=== PATIENT | female | born 1995 | race Caucasian/White ===

== ENCOUNTER 2021-10-20 09:47 | Inpatient (IN) ==
[2021-10-20] MEDS ORDERED: Lidocaine 1% 20 ML MDV INFILT PRN (10:21)
[2021-10-20] MEDS ORDERED: Famotidine 20 MG/2 ML VIAL IVP PRN (10:21)
[2021-10-20] MEDS ORDERED: Naloxone 0.4 MG/ML INJ IVP PRN (10:21)
[2021-10-20] MEDS ORDERED: Metoclopramide 10 MG/2 ML VIAL IVP PRN (10:21)
[2021-10-20] MEDS ORDERED: Penicillin G Potassium 5,000,000 UNIT in 0.9 % Sodium Chloride Mini Bag 100 ML IVPB ONE (10:21)
[2021-10-20] MEDS ORDERED: Ondansetron 4 MG/2 ML VIAL IVP PRN (10:21)
[2021-10-20] MEDS ORDERED: *HR* Nalbuphine 10 MG/ML AMPUL IV PRN (10:21)
[2021-10-20] MEDS ORDERED: Azithromycin 500 MG in 0.9 % Sodium Chloride 250 ML IVPB PRN (10:21)
[2021-10-20] MEDS ORDERED: Penicillin G Potassium 2,500,000 UNIT/105 ML MLS IVPB SCH (10:30)
[2021-10-20] MEDS ORDERED: Oxytocin 20 units/ LR 1000 mL 20 UNIT/1,000 ML BAG IVC SCH ×2 (11:00→21:29)
[2021-10-20] MEDS: Ringers Solution, Lactated 1,000 ML IVC SCH ×2 (11:06→13:25)
[2021-10-20] MEDS ORDERED: EPHEDrine 50 MG/ML VIAL IVP PRN (12:14)
[2021-10-20] MEDS ORDERED: *HR* FentaNYL (PF) 100 MCG/2 ML VIAL EP ONE (12:14)
[2021-10-20] MEDS ORDERED: Ropivacaine/PF 0.2% 20 ML VIAL EP ONE (12:14)
[2021-10-20] MEDS ORDERED: Epidural Premix (fent/bupiv) 110 ML EP SCH (12:15)
[2021-10-20] MEDS ORDERED: Epidural Premix (fent/bupiv) 110 ML EP ONE (12:17)
[2021-10-20 12:20] LABS: Basophils % 0.5 %; Eosinophils # 0.1 K/mcL (0.0-0.6); Eosinophils % 2.1 %; Hematocrit 42.6 % (35.3-44.9); Hemoglobin 14.3 g/dL (11.5-15.4); Immature Granulocytes % 0.8 % (0-4); Lymphocytes # 1.3 K/mcL (0.6-4.6); Lymphocytes % 21.7 %; Mean Corpuscular HGB Conc 33.6 g/dL (31.6-35.5); Mean Corpuscular Hemoglobin 31.7 pg (28.0-33.3); Mean Corpuscular Volume 94.5 fL (83.0-100.0); Mean Platelet Volume 12.2 fL (9.4-12.4); Monocytes # 0.5 K/mcL (0.0-1.3); Monocytes % 7.5 %; Neutrophils # 4.2 K/mcL (1.6-8.9); Platelet Count 191 K/mcL (140-400); Red Blood Count 4.51 M/mcL (3.82-4.97); Segmented Neutrophils % 67.4 %; White Blood Count 6.2 K/mcL (4.3-11.1)
[2021-10-20 13:23] LABS: Amphetamine Screen,Urine Negative ng/mL (Cutoff=1000); Barbiturate Screen,Urine Negative ng/mL (Cutoff=200); Benzodiazepines Screen,Urine Negative ng/mL (Cutoff=200); Cannabinoid Screen,Urine Negative ng/mL (Cutoff = 50); Cocaine Screen,Urine Negative ng/mL (Cutoff= 300); Opiate Screen,Urine Negative ng/mL (Cutoff=300); Phencyclidine Screen,Urine Negative ng/mL (Cutoff=25)
[2021-10-20] MEDS ORDERED: Ondansetron ODT 4 MG TAB.RAPDIS SL PRN (21:29)
[2021-10-20] MEDS ORDERED: Lanolin 7 G OINT...G. TP PRN (21:29)
[2021-10-20] MEDS ORDERED: Benzocaine/Menthol 56 GM AEROSOL SPRAY TP PRN (21:29)
[2021-10-20] MEDS ORDERED: Measles/Mumps/Rubella Vacc 0.5 ML VIAL SQ PRN (21:29)
[2021-10-20] MEDS: Acetaminophen 325 MG TABLET PO SCH (21:49)
[2021-10-20] MEDS: Ibuprofen 600 MG TABLET PO SCH (21:49)
[2021-10-21] MEDS: Ibuprofen 600 MG TABLET PO SCH (04:33)
[2021-10-21] MEDS: Acetaminophen 325 MG TABLET PO SCH ×2 (04:33→09:46)
[2021-10-21 05:00] VITALS: O2SAT 98
[2021-10-21 05:00] LABS: Basophils % 0.4 %; Eosinophils # 0.2 K/mcL (0.0-0.6); Eosinophils % 1.7 %; Hematocrit 35.3 % (35.3-44.9); Immature Granulocytes % 0.6 % (0-4); Lymphocytes # 2.4 K/mcL (0.6-4.6); Lymphocytes % 23.3 %; Mean Corpuscular HGB Conc 34.6 g/dL (31.6-35.5); Mean Corpuscular Volume 95.4 fL (83.0-100.0); Mean Platelet Volume 11.6 fL (9.4-12.4); Monocytes # 0.9 K/mcL (0.0-1.3); Monocytes % 9.2 %; Platelet Count 158 K/mcL (140-400); Red Cell Distribution Width 12.9 % (11.5-14.5); Segmented Neutrophils % 64.8 %
[2021-10-21 05:07] LABS: Hemoglobin 12.2 g/dL (11.5-15.4); Neutrophils # 6.5 K/mcL (1.6-8.9); White Blood Count 10.1 K/mcL (4.3-11.1)
[2021-10-21 06:56] VITALS: BP 118/78; PULSE 74; TEMP 97.8
[2021-10-21] MEDS ORDERED: Prenatal Vit/FA 1 EACH TABLET PO SCH (09:00)
[2021-10-21] MEDS ORDERED: Ketorolac 30 MG/ML VIAL IVP SCH (10:30)
== END 2021-10-21 17:37 | disposition home or self-care (01) | DRG 807 ==
LOC: 1NENULAB 09:47 → 1NENUOBS 20:11
PROVIDERS: ADMIT Obstetrics & Gynecology; ATTEND Obstetrics & Gynecology